=== PATIENT | female | born 1975 | race Caucasian/White ===

== ENCOUNTER 2025-02-22 11:04 | Observation (INO) ==
[2025-02-22 11:50] LABS: Hematocrit (blood only) 44.6 % (37.0-47.0); Hemoglobin 15.5 g/dL (12.0-16.0); Immature Granulocytes # (auto) 0.02 K/uL (0.01-0.20); Immature Granulocytes % (auto) 0.3 %; Mean Corpuscular Hemoglobin 31.5 pg (25.0-34.0); Mean Corpuscular Volume 90.7 fL (80.0-100.0); Platelet Count 363 K/uL (130-400); RDW Standard Deviation 42.5 fL (36.4-46.3); Red Blood Count 4.92 M/uL (4.20-5.40); White Blood Count 7.43 K/ul (4.8-10.8)
[2025-02-22 12:11] LABS: Alanine Aminotransferase 17.0 U/L (7-52); Albumin Globulin Ratio 1.4 (0.9-2); Albumin Level 4.3 gm/dl (3.4-5.0); Alkaline Phosphatase 91.0 U/L (34-104); Anion Gap 9.0 (3-11); Bilirubin,Total 1.0 mg/dl (0.2-1.0); Blood Urea Nitrogen 13.0 mg/dl (6-23); Calcium 9.4 mg/dl (8.6-10.3); Carbon Dioxide 25.0 mmol/L (21-32); Chloride 102.0 mmol/L (98-107); Creatinine Clr Calc Pharmacy 92.6 ml/min; Globulin 3.1 gm/dl (2.5-4.0); Glucose 100.0 mg/dl (70-99(Fasting)); Lipase 16.0 U/L (11-82); Magnesium 2.1 mg/dl (1.7-2.4); Potassium 3.5 mmol/L (3.5-5.1); Sodium 136.0 mmol/L (136-145); Total Protein 7.4 gm/dl (6.0-8.3)
--- NOTE | 2025-02-22 12:56 | XRay Report ---
XR chest 1V portable HISTORY: 49 years-old Female CP acute chest pain COMPARISON: CT chest 02/11/2025 TECHNIQUE: AP view the chest FINDINGS: Cardiomediastinal and hilar silhouettes are within normal limits. No pneumothorax, pleural effusion, airspace consolidation or pulmonary edema. Bones of the chest appear grossly intact. IMPRESSION: No acute process. ACT 112: Negative or not required by law. The above report was generated using voice recognition software. It may contain grammatical, syntax o r spelling errors. Electronically signed by: Akil Moreno M.D. 02/22/2025 12:54 PM
--- NOTE | 2025-02-22 13:47 | Emergency Department Note ---
History of Present Illness General Chief Complaint: Cardiac Assessment Stated Complaint: CHEST PAIN, SOB, FATIGUE Time Seen by Provider: 02/22/25 11:24 History of Present Illness Provider Complaint: chest pain Onset (ago): week(s) Onset (Weeks): 4 Duration: intermittent Onset: during rest and during exertion Pain Location: substernal Pain Radiation: none Severity: moderate Maximum Pain Intensity: 3 Quality: + heaviness (Pressure) Relieved By: + nothing Exacerbated By: + nothing Context: no recent illness, no recent surgery, no recent immobilization, no recent travel, no trauma/injury, no new medications or no history of DVT/PE Associated symptoms: + dyspnea, + palpitations and + cough; no nausea, no diaphoresis, no syncope or no fever Home Medications Medication Instructions Recorded Confirmed Type diazepam 5 mg tablet (Valium) 5 mg PO BID PRN Anxiety 10/13/20 02/19/25 History medical marijuana 1 dose PO DIRECTED PRN NEEDED 10/13/20 02/19/25 History estradiol 0.05 mg/24 hr semiweekly 0.05 mg transdermal DIRECTED 05/25/22 02/19/25 History transdermal patch (Chrystal) progesterone micronized 100 mg 100 mg PO DAILY 05/25/22 02/19/25 History capsule duloxetine 60 mg capsule,delayed 120 mg PO DAILY 02/07/24 02/19/25 History release (Cymbalta) linaclotide 290 mcg capsule 290 mcg PO DAILY 11/28/24 02/19/25 History (Linzess) albuterol sulfate 90 mcg/actuation 1 inh inhalation QID 02/19/25 02/19/25 History breath activated powder inhaler budesonide-formoterol HFA 80 2 puff inhalation Q12H 02/19/25 02/19/25 History mcg-4.5 mcg/actuation aerosol inhaler Allergies Allergy/AdvReac Type Severity Reaction Status Date / Time cetirizine Allergy Intermediate Hives Verified 02/19/25 13:43 Penicillins Allergy Intermediate FACIAL Verified 02/19/25 13:43 SWELLING/DISTORTION erythromycin base AdvReac Intermediate VOMITING Verified 02/19/25 13:43 Quinolones AdvReac Intermediate VOMITING Verified 02/19/25 13:43 Past Med/Surg History Problem List (Updated 02/22/25 @ 13:47 by Didier Gutiérrez MD) Chest pain (Acute) Dyspnea Mediastinal adenopathy Lumbar facet joint syndrome Left flank pain Dysfunction of both eustachian tubes Chronic pelvic pain in female (Acute) Hx of cystoscopy x4 Hx of exploratory laparotomy x4 History of hysterectomy Kidney calculi HTN (hypertension) Hx of endometriosis (Acute) Surgical History History of wisdom tooth extraction History of colonoscopy Family History Father Hypertension Prostate cancer Mother Hypertension Asthma Aunt Breast cancer Family/Other Environmental allergies Other No family history of adverse response to anesthesia No family history of bleeding disorder Social History Smoking Status: Never smoker Hx Alcohol Use: Yes Alcohol Intake Frequency: Monthly or Less Hx Substance Use: Yes Prescribed Medications: Marijuana Preferred Language: Serbian Visual Impairment: No Limitations Hearing Ability: Normal Beliefs That Will Affect Care: None marital status: Current Living Situation: Spouse current occupational status: employed 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 appears well-developed and well- nourished. HENT: Exam performed. - Head: Normocephalic and atraumatic. EYES: Conjunctivae and EOM are normal. Right eye exhibits no discharge. Left eye exhibits no discharge. No scleral icterus. NECK: Normal range of motion. Neck supple. No JVD present. CV: Normal rate, regular rhythm, normal heart sounds and intact distal pulses. There is no peripheral edema. Palpable radial pulses bue. PULM/CHEST: Effort normal and breath sounds normal. No respiratory distress. No stridor. no wheezes. no rales. ABD: The abdomen is soft. There is no tenderness. NEURO: Motor and sensation grossly intact. SKIN: Skin is warm and dry. He is not diaphoretic. PSYCH: normal mood and affect. Behavior is normal. Judgment and thought content normal. Course Course 1124: The patient was evaluated in room B9. A complete history and physical exam was performed Cardiac monitoring: An order was placed for continuous cardiac monitoring. The monitor shows a rate of 90 with sinus rhythm interpreted by me 1345: Vital signs stable. Labs and imaging are unremarkable. Patient will be admitted for chest pain rule out ACS. Medical Decision Making Laboratory Data Attestation: I reviewed the patient's lab results. 02/22/25 11:35 02/22/25 11:35 Labs: Lab Results 02/22/25 Range/Units 11:35 WBC 7.43 (4.8-10.8) K/ul RBC 4.92 (4.20-5.40) M/uL Hgb 15.5 (12.0-16.0) g/dL Hct 44.6 (37.0-47.0) % MCV 90.7 (80.0-100.0) fL MCH 31.5 (25.0-34.0) pg MCHC 34.8 (32.0-36.0) g/dL RDW Std Deviation 42.5 (36.4-46.3) fL RDW Coeff of Dianna 12.8 (11.5-14.5) % Plt Count 363 (130-400) K/uL MPV 9.4 (9.4-12.4) fL Immature Gran % (Auto) 0.3 % Neut % (Auto) 63.9 % Lymph % (Auto) 26.6 % [place] % (Auto) 7.1 % Eos % (Auto) 1.7 % Baso % (Auto) 0.4 % Neut # (Auto) 4.74 (1.40-6.50) K/uL Lymph # (Auto) 1.98 (1.20-3.40) K/uL [place] # (Auto) 0.53 (0.11-0.59) K/uL Eos # (Auto) 0.13 (0.00-0.50) K/uL Baso # (Auto) 0.03 (0.00-0.20) K/uL Immature Gran # (Auto) 0.02 (0.01-0.20) K/uL Sodium 136 (136-145) mmol/L Potassium 3.5 (3.5-5.1) mmol/L Chloride 102 (98-107) mmol/L Carbon Dioxide 25 (21-32) mmol/L Anion Gap 9 (3-11) BUN 13 (6-23) mg/dl Creatinine 0.78 (0.6-1.2) mg/dl Est Cr Clr Drug Dosing 92.6 ml/min eGFR 94.22 BUN/Creatinine Ratio 16.7 (10-20) Glucose 100 H (70-99(Fasting)) mg/dl Calcium 9.4 (8.6-10.3) mg/dl Magnesium 2.1 (1.7-2.4) mg/dl Total Bilirubin 1.0 (0.2-1.0) mg/dl AST 18 (13-39) U/L ALT 17 (7-52) U/L Alkaline Phosphatase 91 (34-104) U/L Troponin I High Sens 2.4 (0-14) pg/ml Total Protein 7.4 (6.0-8.3) gm/dl Albumin 4.3 (3.4-5.0) gm/dl Globulin 3.1 (2.5-4.0) gm/dl Albumin/Globulin Ratio 1.4 (0.9-2) Lipase 16 (11-82) U/L Imaging Data Chest x-ray: Attestation: I personally reviewed and interpreted this imaging study as follows: My impression: Chest x-ray negative. Airway clear. No pneumothorax. No consolidation. No cardiomegaly or cephalization.. No free air under the diaphragm. No fractures of the skeletal structures. Radiologist's impression: Chest X-Ray 02/22/25 00:00 XR chest 1V portable HISTORY: 49 years-old Female CP acute chest pain COMPARISON: CT chest 02/11/2025 TECHNIQUE: AP view the chest FINDINGS: Cardiomediastinal and hilar silhouettes are within normal limits. No pneumothorax, pleural effusion, airspace consolidation or pulmonary edema. Bones of the chest appear grossly intact. IMPRESSION: No acute process. ACT 112: Negative or not required by law. The above report was generated using voice recognition software. It may contain grammatical, syntax or spelling errors. Electronically signed by: Akil Moreno M.D. 02/22/2025 12:54 PM ECG Data Attestation: I personally reviewed and interpreted this ECG as follows: Rate (beats per minute): 96 Rhythm: normal sinus Findings: no ST depression, no ST elevation or no prolonged QT [facility] Narrative 1124: The patient was evaluated in room B9. A complete history and physical exam was performed Cardiac monitoring: An order was placed for continuous cardiac monitoring. The monitor shows a rate of 90 with sinus rhythm interpreted by me 1345: Vital signs stable. Labs and imaging are unremarkable. Patient will be admitted for chest pain rule out ACS. Impression & Plan Chest pain Discharge Plan Visit Data Chief Complaint: Cardiac Assessment Stated Complaint: CHEST PAIN, SOB, FATIGUE ED Provider: Didier Gutiérrez Discharge Problem: Chest pain Patient Disposition: Being Evaluated by Hospitalist Condition: Fair Forms Stand Alone Forms: My [facility] Prescriptions Prescriptions: No Action Linzess 290 mcg capsule 290 mcg PO DAILY diazepam [Valium] 5 mg tablet 5 mg PO BID PRN (Reason: Anxiety) medical marijuana tincture 1 dose PO DIRECTED PRN (Reason: NEEDED) Rx Instructions: USES PILLS, DROPS, BAKING. duloxetine [Cymbalta] 60 mg capsule,delayed release(DR/EC) 120 mg PO DAILY budesonide-formoterol 80-4.5 mcg/actuation HFA aerosol inhaler 2 puff inhalation Q12H albuterol sulfate 90 mcg/actuation aerosol powdr breath activated 1 inh inhalation QID estradiol [Chrystal] 0.05 mg/24 hr patch semiweekly 0.05 mg transdermal DIRECTED Rx Instructions: Semiweekly progesterone micronized 100 mg capsule 100 mg PO DAILY Referrals Referrals: Lily Garces MD [Primary Care Provider] - Discharge Problem: Chest pain Qualifiers: Chest pain type: unspecified Qualified Code(s): R07.9 - Chest pain, unspecified
--- NOTE | 2025-02-22 13:54 | History & Physical Report ---
Date of Service February 22, 2025 Assessment & Plan (1) Chest pain: (2) Dyspnea: Plan Michell Li is a 49 Y O Female with PMH of Asthma, KAVEH, Rosacea, Chronic Abdominal Pain ,Migraine headache without Aura, S/P hysterectomy ,Mild TR, MVP presented today due to ongoing shortness of breath with chest tightness for about a month, intermittent chest pain since a week and palpitation since a day. EKG done in the ER with NSR and no acute findings. Troponin WNL. CTA done in the outpatient rules out PE. Chest Xray done in the ER today with no remarkable findings. She is being admitted for further evaluation of her chest pain. #Intermittent chest pain #Shortness of breath #Occasional palpitation -DD includes stable angina VS MSK vs GERD -Patient reports chest pain radiating to right ribs -No associated risk factors -Physical exam with normal findings -Troponin WNL -EKG : NSR with no ST segment elevation/depression -HEART score of 1 Plan -Will monitor on telemetry -Consider Stress ECHO on Monday. NPO night before -Will also order 2D Echo to for complete evaluation -Order lipid panel, TSH, Hba1c in the AM #Chronic condition Asthma: Doesn't seem to be in acute exacerbation. continue home inhalers Chronic Abdominal Pain due to bladder spasm: Continue Valium 5mg BID PRN KAVEH: Continue Duloxetine 120mg daily Constipation: Continue Linaclotide 290 mcg PO daily Rosacea: Continue Doxycycline Hyclate and Metronidazole Dispo: Med/Surg with tele DVT prophylaxis: Lovenox Code: Full History of Present Illness Primary Care Provider: Lily Garces MD Michell Li is a 49 Y O Female with PMH of Asthma, HTN, KAVEH, Rosacea, Chronic Abdominal Pain Migraine headache without Aura, S/P hysterectomy Mild TR, MVP presented today due to intermittent chest pain for a week. Pain radiating down to the right rib cage. Rates pain as 6/10. She woke up multiple times yesterday night due to pain. She hasn't noticed any changes in pain associated with activities or meals. Has shortness of breath associated with chest tightness/pressure around a month. It feels different from usual Asthma symptoms. SOB is worse with activities. She has been using her rescue inhaler more often than before 3-4 times a day. Inhalers helps with wheezing but not necessarily SOB. She saw DR Landrum in the outpatient. PFT was done recently and it was normal. She has noticed palpitation since last night. Not terrible , noticed occasionally. Little of lightheadedness and dizziness. In addition, she has noticed abdominal pain since 2-3 days, squeezing type. Has Chronic abdominal pain , but feels different than the normal pain. She feels nauseus but no vomiting. Denies diarrhea/constipation. No reflux/acidic sensation. She has really low appetite since past few days. She has insomnia, so not sleeping well. 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 She reports her work has been more stressful since September. She wishes to be full code. ER course Chest XRay with no acute abnormalities ECG with NSR Troponin : wnl CBC, CMP: wnl Allergies Allergy/AdvReac Type Severity Reaction Status Date / Time cetirizine Allergy Intermediate Hives Verified 02/19/25 13:43 Penicillins Allergy Intermediate FACIAL Verified 02/19/25 13:43 SWELLING/DISTORTION erythromycin base AdvReac Intermediate VOMITING Verified 02/19/25 13:43 Quinolones AdvReac Intermediate VOMITING Verified 02/19/25 13:43 Home Medications Medication Instructions Recorded Confirmed Type diazepam 5 mg tablet (Valium) 5 mg PO BID PRN Anxiety 10/13/20 02/22/25 History medical marijuana 1 dose PO DIRECTED PRN NEEDED 10/13/20 02/22/25 History estradiol 0.05 mg/24 hr semiweekly 0.05 mg transdermal DIRECTED 05/25/22 02/22/25 History transdermal patch (Chrystal) progesterone micronized 100 mg 100 mg PO DAILY 05/25/22 02/22/25 History capsule duloxetine 60 mg capsule,delayed 120 mg PO DAILY 02/07/24 02/22/25 History release (Cymbalta) linaclotide 290 mcg capsule 290 mcg PO DAILY 11/28/24 02/22/25 History (Linzess) albuterol sulfate 90 mcg/actuation 1 inh inhalation QID 02/19/25 02/22/25 History breath activated powder inhaler budesonide-formoterol HFA 80 2 puff inhalation Q12H 02/19/25 02/22/25 History mcg-4.5 mcg/actuation aerosol inhaler doxycycline hyclate 20 mg tablet 20 mg PO TID 02/22/25 02/22/25 History lidocaine 5 % topical patch 1 patch topical UD 02/22/25 02/22/25 History metronidazole 0.75 % topical cream 1 applic topical UD 02/22/25 02/22/25 History Past Med/Surg History Problem List (Updated 02/22/25 @ 13:47 by Didier Gutiérrez MD) Chest pain (Acute) Dyspnea Mediastinal adenopathy Lumbar facet joint syndrome Left flank pain Dysfunction of both eustachian tubes Chronic pelvic pain in female (Acute) Hx of cystoscopy x4 Hx of exploratory laparotomy x4 History of hysterectomy Kidney calculi HTN (hypertension) Hx of endometriosis (Acute) Surgical History History of wisdom tooth extraction History of colonoscopy Family History Father Hypertension Prostate cancer Mother Hypertension Asthma Aunt Breast cancer Family/Other Environmental allergies Other No family history of adverse response to anesthesia No family history of bleeding disorder Social History Smoking Status: Never smoker Hx Alcohol Use: Yes Alcohol type: hard liquor Alcohol Intake Frequency: Monthly or Less Hx Substance Use: Yes Prescribed Medications: Marijuana Last Used Substance: Days (ago) Last Used Substance Other:: 7 days ago Preferred Language: Puerto Rican Visual Impairment: No Limitations Hearing Ability: Normal Animal Feeder Required: No Beliefs That Will Affect Care: None marital status: Current Living Situation: Spouse current occupational status: employed 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 No rhonchi, wheezes, or crackles. No increased work of breathing GI: Soft, Nondistended, Nontender, Normal Bowel sounds + MSK: No gross deformities noted Skin: Warm, Dry, No rashes Neuro: Alert, Oriented to TPP, No Focal deficit Psych: Mood and Affect congruent, Cooperative on exam Results & Data Results & Data Vital Signs (Past 12 Hours) Vital Signs Temp Pulse Resp BP Pulse Ox O2 Del Method 02/22/25 11:51 87 02/22/25 11:09 36.1 C L 105 H 16 137/96 94 Room Air Supervising Physician Co-Signing Physician Notes I personally examined the patient and verified all shelley points of history and exam, discussed case, and agree with decision making with Dr Elliott fatigue, chest pressure, shortness of breathfairly constant for the last week, prior to that off-and-on over the last month. Has generally been feeling lousy throughout the year from multiple different issues and therefore has not been able to exercise is much as normal, but she has been working out with a personal trainerand at least did some cardio about 2 weeks ago10 minutes on an elliptical as a warm upand did not really feel any worse than she recalls in that context. 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 No falls. CT chest about a week and 1/2-2 weeks ago extremely reassuring, PFTs about 2 days ago normal. Does have asthma, has had some wheezingusing her albuterol helps with the wheezing but has not alleviated the chest pressure or shortness of breath. Vitals noted, in general she is awake and alert pleasant no distress. HEENT normocephalic atraumatic mucous membranes moist. Cardio is regular without rubs murmurs or gallops. Lungs are clear without rales rhonchi wheezes good effort no accessory muscle use good air entry. Musculoskeletal shows her to have tenderness to palpation anterior and posterior rib cage, does seem to have normal rib range of motion/excursion with deep breathing, but also I have never examined her rib cage before. Abdomen has some nondescript lower abdominal tenderness without guarding or rebound. Skin without rashes, pallor, icterus although she does have a bit of a blush across her cheeks that she attributes to her rosacea flaring. Chest pain/shortness of breathpulmonary etiologies have been ruled out. Check echo and stress echo to eliminate cardiac etiologies. Suspect musculo skeletal (and with her other biomechanical issues as well as facial rash if we rule out cardiac, would probably send an BEAN, CRP, and rheumatoid factor to look for if there is an etiology underlying the musculoskeletal etiology), anxiety could be a contributorespecially given that she has had a lot of medical issues over the last year, but with the way she examines, if anxiety is a contributor I suspect it is much more of a symptom amplifier rather than the root cause (i.e. the volume knob but not the song itself) otherwise as above (1) Chest pain Chest pain type: unspecified Qualified Code(s): R07.9 - Chest pain, unspecified
[2025-02-22] MEDS ORDERED: ALUMINUM/MAGNESIUM SUSP 30 ML UDC PO PRN (16:51)
[2025-02-22] MEDS ORDERED: ONDANSETRON INJ 2 MG/ML 2 ML VIAL IV PRN (16:51)
[2025-02-22] MEDS ORDERED: MELATONIN 3 MG TAB PO PRN (16:51)
[2025-02-22] MEDS: ALBUTEROL HFA 8 GM INHALER INH SCH ×2 (17:17→19:47)
[2025-02-22] MEDS: FLUTICASONE/VILANTEROL 100/25MCG 14 PUFFS/INHALER INH SCH (17:19)
--- NOTE | 2025-02-22 17:38 | Billing Data ---
Date of Service February 22, 2025 Coding Level of Care Code 02350 INT INP/OBS CARE
[2025-02-22] MEDS: ACETAMINOPHEN 325 MG TAB PO PRN (19:51)
[2025-02-22] MEDS: DOXYCYCLINE SUSP 25 MG/5 ML 60ML PO SCH (20:36)
[2025-02-23 03:38] VITALS: RESP 20
[2025-02-23] MEDS ORDERED: ALBUTEROL HFA 8 GM INHALER INH PRN (07:27)
--- NOTE | 2025-02-23 07:31 | Hospitalist Progress Note ---
Date of Service February 23, 2025 Assessment & Plan (1) Chest pain: (2) Dyspnea: Plan Michell Li is a 49 Y O Female with PMH of Asthma, KAVEH, Rosacea, Chronic Abdominal Pain ,Migraine headache without Aura, S/P hysterectomy ,Mild TR, MVP presented today due to ongoing shortness of breath with chest tightness for about a month, intermittent chest pain since a week and palpitation since a day. EKG done in the ER with NSR and no acute findings. Troponin WNL. CTA done in the outpatient rules out PE. Chest Xray done in the ER today with no remarkable findings. She is being admitted for further evaluation of her chest pain. #Intermittent chest pain #Shortness of breath #Occasional palpitation -DD includes stable angina VS MSK vs GERD -Patient reports chest pain radiating to right ribs -No associated risk factors -Physical exam with normal findings -Troponin WNL -EKG : NSR with no ST segment elevation/depression -HEART score of 1 Plan -Will monitor on telemetry -Consider Stress ECHO on Monday. NPO night before -Will also order 2D Echo to for complete evaluation -Order lipid panel, TSH, Hba1c in the AM #Chronic condition Asthma: Doesn't seem to be in acute exacerbation. continue home inhalers Chronic Abdominal Pain due to bladder spasm: Continue Valium 5mg BID PRN KAVEH: Continue Duloxetine 120mg daily Constipation: Continue Linaclotide 290 mcg PO daily Rosacea: Continue Doxycycline Hyclate and Metronidazole Dispo: Med/Surg with tele DVT prophylaxis: Lovenox Code: Full Admission and Anticipated Discharge Date Admission Date: February 22, 2025 Review of Systems Review of Systems: As per HPI Physical Exam Physical Exam: Constitutional: Well appearinng, Rosacea +No acute distress, PILCCOD: Negative HEENT: Atraumatic, Normocephalic, No conjunctival injection CVS: S1 S2 no murmur, Regular Rhythm, no LE edema Respiratory: BL equal air entry with NVBS. No rhonchi, wheezes, or crackles. No increased work of breathing GI: Soft, Nondistended, Nontender, Normal Bowel sounds + MSK: No gross deformities noted Skin: Warm, Dry, No rashes Neuro: Alert, Oriented to TPP, No Focal deficit Psych: Mood and Affect congruent, Cooperative on exam Results & Data Results & Data Vital Signs (Past 12 Hours) Vital Signs Temp Pulse Pulse Resp BP Pulse Ox O2 Del Method 02/23/25 07:07 85 02/23/25 03:37 36.6 C 74 20 140/95 96 Room Air 02/22/25 23:43 36.6 C 74 18 124/80 94 Room Air 02/22/25 21:35 82 02/22/25 19:57 37.0 C 87 20 134/92 95 Room Air (1) Chest pain Chest pain type: unspecified Qualified Code(s): R07.9 - Chest pain, unspecified
[2025-02-23 07:58] VITALS: BP 147/93; PULSE 80; TEMP 97.7; O2SAT 95
[2025-02-23] MEDS: LINACLOTIDE 145 MCG CAPSULE PO SCH (08:05)
--- NOTE | 2025-02-23 11:26 | Discharge Summary ---
Date of Service February 23, 2025 Admission HPI Per Admitting Provider Michell Li is a 49 Y O Female with PMH of Asthma, HTN, KAVEH, Rosacea, Chronic Abdominal Pain Migraine headache without Aura, S/P hysterectomy Mild TR, MVP presented today due to intermittent chest pain for a week. Pain radiating down to the right rib cage. Rates pain as 6/10. She woke up multiple times yesterday night due to pain. She hasn't noticed any changes in pain associated with activities or meals. Has shortness of breath associated with chest tightness/pressure around a month. It feels different from usual Asthma symptoms. SOB is worse with activities. She has been using her rescue inhaler more often than before 3-4 times a day. Inhalers helps with wheezing but not necessarily SOB. She saw DR Landrum in the outpatient. PFT was done recently and it was normal. She has noticed palpitation since last night. Not terrible , noticed occasionally. Little of lightheadedness and dizziness. In addition, she has noticed abdominal pain since 2-3 days, squeezing type. Has Chronic abdominal pain , but feels different than the normal pain. She feels nauseus but no vomiting. Denies diarrhea/constipation. No reflux/acidic sensation. She has really low appetite since past few days. She has insomnia, so not sleeping well. 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 She reports her work has been more stressful since September. She wishes to be full code. ER course Chest XRay with no acute abnormalities ECG with NSR Troponin : wnl CBC, CMP: wnl Admission Exam Per Admitting Provider Constitutional: Well appearinng, Rosacea +No acute distress, PILCCOD: Negative HEENT: Atraumatic, Normocephalic, No conjunctival injection CVS: S1 S2 no murmur, Regular Rhythm, no LE edema Respiratory: BL equal air entry with NVBS. No rhonchi, wheezes, or crackles. No increased work of breathing GI: Soft, Nondistended, Nontender, Normal Bowel sounds + MSK: No gross deformities noted Skin: Warm, Dry, No rashes Neuro: Alert, Oriented to TPP, No Focal deficit Psych: Mood and Affect congruent, Cooperative on exam Principal Diagnosis Chest Pain Discharge Exam Constitutional: Well appearinng, Rosacea +No acute distress, PILCCOD: Negative HEENT: Atraumatic, Normocephalic, No conjunctival injection CVS: S1 S2 no murmur, Regular Rhythm, no LE edema Respiratory: BL equal air entry with NVBS. No rhonchi, wheezes, or crackles. No increased work of breathing GI: Soft, Nondistended, Nontender, Normal Bowel sounds + MSK: No gross deformities noted Skin: Warm, Dry, No rashes Neuro: Alert, Oriented to TPP, No Focal deficit Psych: Mood and Affect congruent, Cooperative on exam Discharge Data Allergies Allergy/AdvReac Type Severity Reaction Status Date / Time cetirizine Allergy Intermediate Hives Verified 02/19/25 13:43 Penicillins Allergy Intermediate FACIAL Verified 02/19/25 13:43 SWELLING/DISTORTION erythromycin base AdvReac Intermediate VOMITING Verified 02/19/25 13:43 Quinolones AdvReac Intermediate VOMITING Verified 02/19/25 13:43 Consultations 02/22/25 13:41 ED Decision to Admit Stat Hospital Course (1) Chest pain: (2) Dyspnea: Plan Michell Li is a 49 Y O Female with PMH of Asthma, KAVEH, Rosacea, Chronic Abdominal Pain ,Migraine headache without Aura, S/P hysterectomy ,Mild TR, MVP presented today due to ongoing shortness of breath with chest tightness for about a month, intermittent chest pain since a week and palpitation since a day. EKG done in the ER with NSR and no acute findings. Troponin WNL. CTA done in the outpatient rules out PE. Chest Xray done in the ER today with no remarkable findings. She was admitted for further evaluation of her chest pain. #Intermittent chest pain #Shortness of breath #Occasional palpitation -DD includes stable angina VS MSK vs GERD -Patient reports chest pain radiating to right ribs -No associated risk factors -Physical exam with normal findings -Troponin WNL -EKG : NSR with no ST segment elevation/depression -HEART score of 1 -Was monitored on telemetry. NSR 70s-80s -Consider Stress ECHO on Outpatient. Referral has been sent to scheduling -2 D Echo this morning, awaiting results #Chronic condition Asthma: Doesn't seem to be in acute exacerbation. continue home inhalers Chronic Abdominal Pain due to bladder spasm: Continue Valium 5mg BID PRN KAVEH: Continue Duloxetine 120mg daily Constipation: Continue Linaclotide 290 mcg PO daily Rosacea: Continue Doxycycline Hyclate and Metronidazole Dispo: Home Total Time Total Time Spent Total Time Spent (In Minutes): <30 Discharge Plan Discharge Items Patient Disposition: Home - Self-Care Reason For Visit: CHEST PAIN, SOB Discharge Diagnosis: 1. Chest pain Condition on Discharge: Fair Activity: Resume your previous activity Non-emergency contact: Primary Care Provider Call non-emergency contact if: you have any medication questions and your symptoms worsen Follow-up/Referrals: Lily Garces MD [Primary Care Provider] - (Please schedule a follow up appointment with your primary care physician in 1-2 weeks) Diet: Regular and Other - See Diet Comment Addtl Attending Provider Instructions: You came in hospital with symptoms of chest pain, shortness of breath and chest tightness. You were evaluated for chest pain. Workup including Chest Xray, ECG, Chest CT, Echocardiogram, Cardiac enzymes were normal. You were monitored in Telemetry unit overnight with no any abnormal findings detected. For further evaluation of your chest pain, you were planned for Stress Echocardiogram. Today you look better clinically, and symptoms have improved. You are stable to go back home with stress echocardiogram to be performed in the outpatient. Medication -We have sent a Voltaren area to your pharmacy. Please apply Voltaren gel to the area over your chest pain. On examination findings, musculoskeletal component also seems to be playing role for chest pain. -No changes in rest of your home medications has been made. Please take all your home medication as you were taking before. Followup -Please followup with your Primary care Provider within a week from hospital discharge. - Referral has been placed to schedule for stress Echocardiogram. You will receive a call regarding your schedule. Follow up in the outpatient for stress echocardiogram. Pending Studies at Discharge: No Stand-Alone Forms: My [employer], Smoking Cessation Medications and DC Order Prescriptions: New diclofenac sodium [Voltaren Arthritis Pain] 1 % gel 2 g topical QID Qty: 100 0RF Rx Instructions: apply to single elbow, wrist or hand; for hand includes palm/fingers/back of hand Continued Linzess 290 mcg capsule 290 mcg PO DAILY diazepam [Valium] 5 mg tablet 5 mg PO BID PRN (Reason: Anxiety) medical marijuana tincture 1 dose PO DIRECTED PRN (Reason: NEEDED) Patient Comments: 02/22-unable to verify Rx Instructions: USES PILLS, DROPS, BAKING. duloxetine [Cymbalta] 60 mg capsule,delayed release(DR/EC) 120 mg PO DAILY budesonide-formoterol 80-4.5 mcg/actuation HFA aerosol inhaler 2 puff inhalation Q12H albuterol sulfate 90 mcg/actuation aerosol powdr breath activated 1 inh inhalation QID estradiol [Chrystal] 0.05 mg/24 hr patch semiweekly 0.05 mg transdermal DIRECTED Rx Instructions: Semiweekly progesterone micronized 100 mg capsule 100 mg PO DAILY lidocaine 5 % adhesive patch,medicated 1 patch topical UD metronidazole 0.75 % cream 1 applic TOPICAL UD doxycycline hyclate 20 mg tablet 20 mg PO TID Discharge Orders: Discharge Order (Routine); Ordered 02/23/25 Ordered By: Nupur Barrientos/Other Patient Handouts: Diclofenac Topical Gel Admission Data Admit Date/Time: 02/22/25 14:41 Attending Provider: Mikey Vuong Admit Provider: Nupur Elliott Primary Care Provider: Lily Garces Other Providers: Mikey Vuong Other Interventions: Discharge Summary Assessment (RN) Last Done: 02/23/25 11:26 Supervising Physician Co-Signing Physician Notes I personally examined the patient and verified all shelley points of history and e xam, discussed case, and agree with decision making with Dr Elliott feels up to going home. discussed working dx and plans. Chest pain/shortness of breathpulmonary etiologies have been ruled out. wants to pursue stress test as outpt - which seems quite reasonable. echo images obtained, interpretation pending but OK to follow up as outpt. Suspect musculoskeletal (and with her other biomechanical issues as well as facial rash if we rule out cardiac,-->BEAN, CRP, and rheumatoid factor to look for if there is an etiology underlying the musculoskeletal etiology), anxiety could be a contributorespecially given that she has had a lot of medical issues over the last year, but with the way she examines, if anxiety is a contributor I suspect it is much more of a symptom amplifier rather than the root cause (i.e. the volume knob but not the song itself) - this fits given that her symptoms improved some just once she had a working dx and plan. taught rib stretches, discussed using voltaren gel, discussed OMT. discussed current CRP nonspecific - but as symptoms evolve and/or BEAN/RF come back it can start to potentially paint "shades of valverde" - also discussed that we sometimes see pt's who appear to have connective tissue disease that don't linearly fit in an autoimmune dx - would want PCP continuing to weigh in as dx unfolds. otherwise as above, safe/stable for home Resident Activity Tracking Resident Involvement: Resident Care Provided Care Provided: Adult Hospital Medicine
--- NOTE | 2025-02-23 14:11 | Electrocardiogram Report ---
Test Reason : Blood Pressure : */* mmHG Vent. Rate : 96 BPM Atrial Rate : 96 BPM P-R Int : 142 ms QRS Dur : 86 ms QT Int : 336 ms P-R-T Axes : 38 24 59 degrees QTcB Int : 424 ms Normal sinus rhythm Normal ECG When compared with ECG of 06-Jun-2024 08:44, Criteria for Septal infarct are no longer Present Confirmed by Imelda Parr (Staci) on 02/23/2025 2:10:57 PM Referred By: REFERRED SELF Confirmed By: Imelda Parr
--- NOTE | 2025-02-23 19:14 | Billing Data ---
Date of Service February 23, 2025 Coding Level of Care Code 28664 IN/OBS DISCH 30 MIN/LESS
--- NOTE | 2025-02-23 19:15 | Billing Data ---
Date of Service February 23, 2025 Coding Level of Care Code 22439 IN/OBS DISCH 30 MIN/LESS
[2025-02-24] MEDS ORDERED: INFLUENZA VACC TS2025-26(6m+)/PF (IIV3) 0.5mL Syr IM ONE (10:00)
[2025-02-27 13:18] LABS: Anti Nuclear Antibody Screen POSITIVE (NEGATIVE)
== END 2025-02-23 12:20 | disposition home or self-care (01) | DRG 313 ==
LOC: ED 11:04 → 2N 14:41 → INTOOBSV 14:41 → 2N 16:35